=== PATIENT | female | born 1970 | race Caucasian/White ===

== ENCOUNTER 2017-05-03 19:48 | Emergency (ER) | payer MEDICAID ==
[2017-05-03] MEDS ORDERED: Ketorolac 30 MG/ML SDV IVPUSH ONE (20:26)
[2017-05-03] MEDS ORDERED: Tamsulosin 0.4 MG Cap.ER PO ONE (20:26)
[2017-05-03] MEDS ORDERED: Sodium Chloride 0.9% 1,000 ML IV ONE ×2 (20:26→22:32)
[2017-05-03] MEDS ORDERED: Morphine 2 MG/ML Syringe IVPUSH ONE (20:26)
[2017-05-03] MEDS ORDERED: Ondansetron 4 MG/2 ML SDV IVPUSH ONE (20:26)
--- NOTE | 2017-05-03 20:33 | EDM.PDOC ---
ED HPI GENERAL MEDICAL PROBLEM - General Chief Complaint: Flank Pain Stated Complaint: PT HAS BACK PAIN Time Seen by Provider: 05/03/17 20:20 Source of Information: Reports: Patient History Limitations: Reports: No Limitations - History of Present Illness INITIAL COMMENTS - FREE TEXT/NARRATIVE: HISTORY AND PHYSICAL: History of present illness: [Patient comes to the emergency room complaining of right flank pain. She had a kidney stone one year ago and states that today's symptoms feel exactly the same. She states that she's been having twinges to her right low back area for the past 1-1/2-2 weeks with the pain hit her hard and suddenly today at approximately 6:30 PM. She's had 3 episodes of vomiting at home. She rates her pain at 10 out of 10 and continues to feel nauseous in the ER. She has noticed no blood in her urine. No burning with urination and urinary urgency. She has had some recent frequency but nothing significant per her report. She denies fever and chills. No abdominal pain, constipation or diarrhea. She is otherwise feeling well.] Review of systems: As per history of present illness and below otherwise all systems reviewed and negative. Past medical history: As per history of present illness and as reviewed below otherwise noncontributory. Surgical history: As per history of present illness and as reviewed below otherwise noncontributory. Social history: No reported history of drug or alcohol abuse. Family history: As per history of present illness and as reviewed below otherwise noncontributory. Physical exam: HEENT: Atraumatic, normocephalic. Oral mucous membranes are pink and moist. Lungs: Clear to auscultation, breath sounds equal bilaterally. Heart: S1S2, regular rate and rhythm. Abdomen: Soft, nondistended, mildly tender over her suprapubic area. Otherwise nontender. Tender with palpation of her right flank. Pelvis: Stable nontender. Genitourinary: Deferred. Rectal: Deferred. Extremities: Atraumatic, no swelling or cyanosis to feet or lower legs. Neurovascular unremarkable. Neuro: Awake, alert, oriented. Motor and sensory unremarkable throughout. Exam nonfocal. Diagnostics: [CBC, CMP, UA, CT abdomen and pelvis without contrast] Therapeutics: [Toradol 30 mg IV, Zofran 4 mg IV, morphine 2 mg IV, 1 L normal saline, Flomax 0.4 mg by mouth] Impression: [R flank pain] Plan: [Discussed w/ patient that it appears that she has passed a kidney stone as there is calcific debris seen within the right kidney. Rx is written for ketorolac 10 mg #20 sig 1 by mouth every 6 hours 0 refills, Zofran ODT #10 sig one by mouth 3 times a day as needed for nausea 0 refills, hydrocodone 5/325 mg #20 sig one by mouth every 6 hours as needed for pain 0 refills, Flomax 0.4 mg # 10 sig one by mouth daily 0 refills through [facility] for hydrocodone, Toradol, and Zofran. She is to follow up with urology. She is given a second liter of normal saline and pain is 2 out of 10. Will give her 1 dose of by mouth Toradol and hydrocodone. Incidental finding on CT shows a density of 2.9 cm. Discussed w/ her that this requires follow up w/ her PCP. She verbalized understanding of our discussion and agrees to do so. ] Definitive disposition and diagnosis as appropriate pending reevaluation and review of above. Treatments RN OUTPATIENT SURGERY: Reports: NSAIDS Flank Pain Score (Numeric/FACES): 8 - Related Data Allergies Allergy/AdvReac Type Severity Reaction Status Date / Time prednisone Allergy Chest Pain Verified 05/03/17 20:32 Sulfa (Sulfonamide Allergy Hives Verified 05/03/17 20:32 Antibiotics) Home Meds: Home Meds Estradiol 1 mg PO DAILY 06/01/15 [History] Furosemide [Lasix] 20 mg PO DAILY 06/01/15 [History] Levothyroxine [Synthroid] 100 mcg PO ACBREAKFAST 06/01/15 [History] Losartan [Cozaar] 50 mg PO ONETIME 06/01/15 [History] metFORMIN [Glucophage] 1,000 mg PO DAILY 06/01/15 [History] Past Medical History Cardiovascular History: Reports: Other (See Below) Other Cardiovascular History: congenital heart defect 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: Other (See Below) Other OB/BYN History: full hysterectomy 2003, precancerous Neurological History: Reports: Concussion, Migraines Psychiatric History: Reports: Panic Attack, PTSD Hematologic History: Reports: Anemia - Past Surgical History HEENT Surgical History: Reports: Adenoidectomy, Tonsillectomy Social & Family History - Family History Family Medical History: Noncontributory - Tobacco Use Smoking Status *Q: Former Smoker Second Hand Smoke Exposure: No - Caffeine Use Caffeine Use: Reports: None - Recreational Drug Use Recreational Drug Use: No ED ROS GENERAL - Review of Systems Review Of Systems: ROS reveals no pertinent complaints other than HPI. ED EXAM,LOWER BACK PAIN/INJURY - Physical Exam Exam: See Below Course - Vital Signs Last Recorded V/S: Last Vital Signs Temp 98.2 F 05/03/17 20:05 Pulse 115 H 05/03/17 20:05 Resp 24 H 05/03/17 20:05 BP 188/89 H 05/03/17 20:05 Pulse Ox 93 L 05/03/17 20:05 - Orders/Labs/Meds Orders: Active Orders 24 hr Category Date Time Status Abdomen Pelvis wo Cont [CT] Stat Exams 05/03/17 20:25 Taken Sodium Chloride 0.9% [Normal Saline] 1,000 ml Med 05/03/17 22:32 Active IV STAT Medication Orders Sodium Chloride (Normal Saline) 1,000 mls @ 999 mls/hr IV STAT ONE Stop: 05/03/17 23:32 Labs: Laboratory Tests 05/03/17 05/03/17 05/03/17 Range/Units 20:32 20:32 21:18 WBC 10.06 (4.0-11.0) K/uL RBC 4.61 (4.30-5.90) M/uL Hgb 12.8 (12.0-16.0) g/dL Hct 38.5 (36.0-46.0) % MCV 83.5 (80.0-98.0) fL MCH 27.8 (27.0-32.0) pg MCHC 33.2 (31.0-37.0) g/dL RDW Std Deviation 41.9 (28.0-62.0) fl RDW Coeff of Cherry 14 (11.0-15.0) % Plt Count 298 (150-400) K/uL MPV 9.60 (7.40-12.00) fL Neut % (Auto) 63.1 (48.0-80.0) % Lymph % (Auto) 31.8 (16.0-40.0) % [facility] % (Auto) 4.4 (0.0-15.0) % Eos % (Auto) 0.7 (0.0-7.0) % Baso % (Auto) 0.0 (0.0-1.5) % Neut # (Auto) 6.4 H (1.4-5.7) K/uL Lymph # (Auto) 3.2 H (0.6-2.4) K/uL [facility] # (Auto) 0.4 (0.0-0.8) K/uL Eos # (Auto) 0.1 (0.0-0.7) K/uL Baso # (Auto) 0.0 (0.0-0.1) K/uL Nucleated RBC % 0.0 /100WBC Nucleated RBCs # 0 K/uL Sodium 139 (136-146) mmol/L Potassium 3.6 (3.5-5.1) mmol/L Chloride 101 (98-110) mmol/L Carbon Dioxide 22 (21-31) mmol/L BUN 14 (6.0-23.0) mg/dL Creatinine 0.8 (0.6-1.5) mg/dL Est Cr Clr Drug Dosing 86.75 mL/min Estimated GFR (MDRD) > 60.0 ml/min Glucose 216 H (60-110) mg/dL Calcium 9.7 (8.8-10.8) mg/dL Total Bilirubin 0.7 (0.1-1.5) mg/dL AST 39 (5-40) IU/L ALT 64 H (8-54) IU/L Alkaline Phosphatase 97 (40-150) Total Protein 7.3 (6.0-8.0) g/dL Albumin 4.2 (3.5-5.0) g/dL Globulin 3.1 (2.0-3.5) g/dL Albumin/Globulin Ratio 1.4 (1.3-2.8) Urine Color YELLOW Urine Appearance CLEAR Urine pH 6.0 (5.0-8.0) Ur Specific [place] >= 1.030 (1.001-1.035) Urine Protein NEGATIVE (NEGATIVE) mg/dL Urine Glucose (UA) NEGATIVE (NEGATIVE) mg/dL Urine Ketones TRACE H (NEGATIVE) mg/dL Urine Occult Blood NEGATIVE (NEGATIVE) Urine Nitrite NEGATIVE (NEGATIVE) Urine Bilirubin SMALL H (NEGATIVE) Urine Ictotest NEGATIVE Urine Urobilinogen 0.2 (<2.0) EU/dL Ur Leukocyte Esterase NEGATIVE (NEGATIVE) Urine RBC 0-1 (0-2/HPF) Urine WBC 0-2 (0-5/HPF) Ur Epithelial Cells FEW (NONE-FEW) Calcium Oxalate Crystal MODERATE (NEGATIVE) Urine Bacteria FEW (NEGATIVE) Meds: Medications Generic Name Dose Route Start Last Admin Trade Name Genesis PRN Reason Stop Dose Admin Sodium Chloride 1,000 mls @ 999 mls/hr 05/03/17 22:32 Normal Saline IV 05/03/17 23:32 STAT ONE Discontinued Medications Generic Name Dose Route Start Last Admin Trade Name Genesis PRN Reason Stop Dose Admin Hydrocodone Bitart/Acetaminophen 1 tab 05/03/17 22:40 [place] 325-10 Mg PO 05/03/17 22:41 ONETIME ONE Sodium Chloride 1,000 mls @ 999 mls/hr 05/03/17 20:26 05/03/17 20:44 Normal Saline IV 05/03/17 21:26 999 mls/hr STAT ONE Administration Ketorolac Tromethamine 30 mg 05/03/17 20:26 05/03/17 20:44 Toradol IVPUSH 05/03/17 20:27 30 mg ONETIME ONE Administration Ketorolac Tromethamine 10 mg 05/03/17 22:40 Toradol PO 05/03/17 22:41 ONETIME ONE Morphine Sulfate 2 mg 05/03/17 20:26 05/03/17 21:32 Morphine IVPUSH 05/03/17 20:27 2 mg ONETIME ONE Administration Ondansetron HCl 4 mg 05/03/17 20:26 05/03/17 20:44 Zofran IVPUSH 05/03/17 20:27 4 mg ONETIME ONE Administration Tamsulosin HCl 0.4 mg 05/03/17 20:26 05/03/17 20:44 Flomax PO 05/03/17 20:27 0.4 mg ONETIME ONE Administration Departure - Departure Time of Disposition: 22:30 Disposition: Home, Self-Care 01 Condition: Good Clinical Impression: Kidney stone - Discharge Information Referrals: PCP,None [Primary Care Provider] - Forms: ED Department Discharge Additional Instructions: The following information is given to patients seen in the emergency department who are being discharged to home. This information is to outline your options for follow-up care. We provide all patients seen in our emergency department with a follow-up referral. The need for follow-up, as well as the timing and circumstances, are variable depending upon the specifics of your emergency department visit. If you don't have a primary care physician on staff, we will provide you with a referral. We always advise you to contact your personal physician following an emergency department visit to inform them of the circumstance of the visit and for follow-up with them and/or the need for any referrals to a consulting specialist. The emergency department will also refer you to a specialist when appropriate. This referral assures that you have the opportunity for follow-up care with a specialist. All of these measure are taken in an effort to provide you with optimal care, which includes your follow-up. Under all circumstances we always encourage you to contact your private physician who remains a resource for coordinating your care. When calling for follow-up care, please make the office aware that this follow-up is from your recent emergency room visit. If for any reason you are refused follow-up, please contact the [facility] emergency department at and asked to speak to the emergency department charge nurse. [facility] - Urology [address] [place] [address] Follow-up with your urologist or the clinic listed above in 48-72 hours. Take pain medications to stay on top of your discomfort. Push fluids. Return to ER as needed as discussed. - My Orders Last 24 Hours: My Active Orders 05/03/17 20:25 Abdomen Pelvis wo Cont [CT] Stat 05/03/17 22:32 Sodium Chloride 0.9% [Normal Saline] 1,000 ml IV STAT - Assessment/Plan Last 24 Hours: My Active Orders 05/03/17 20:25 Abdomen Pelvis wo Cont [CT] Stat 05/03/17 22:32 Sodium Chloride 0.9% [Normal Saline] 1,000 ml IV STAT
[2017-05-03 21:00] LABS: CHLORIDE,CL 101 mmol/L (98-110); SODIUM,NA 139 mmol/L (136-146)
[2017-05-03] MEDS ORDERED: Acetaminophen/HYDROcodone 325-10 MG Tab PO ONE (22:40)
[2017-05-03] MEDS ORDERED: Ketorolac 10 MG Tab PO ONE (22:40)
[2017-05-04 00:27] VITALS: BP 123/76
--- NOTE | 2017-05-04 19:46 | CT ---
EXAM DATE: 05/03/17 PATIENT'S AGE: 47 Patient: NORMAN CHARLES Facility: [facility], [place], [place] : 1970 Study: CT Abdomen/Pelvis [id number]/14/2018 9:28:00 PM Ordering Physician: SHAUN Final Report: INDICATION: Right flank pain TECHNIQUE: CT Abdomen and pelvis without i.v. contrast. Coronal and sagittal reformats were obtained. CONTRAST: None COMPARISON: 05/08/2016 FINDINGS: Lower chest: Unremarkable. Liver: Moderate diffuse fatty infiltration of the liver is noted with mild focal fatty sparing near the gallbladder fossa. Spleen: Unremarkable. Pancreas: Unremarkable. Gallbladder: Previous cholecystectomy noted without significant intra- or extrahepatic biliary ductal dilatation seen. Kidney: There is a punctate less than 1 mm stone present in the lower pole of the right kidney. Mild calcific debris is seen in the right lower pole posterior calyx. Adrenal: Unremarkable. Bowel: There is a gasless density near the ileocecal valve measuring 2.9 cm without any apparent obstruction of the terminal ileum. This is most likely due to small bowel contents incompletely mixing with cecal stool. Moderate sigmoid diverticulosis is present with no evidence of diverticulitis. The appendix is not identified. Small fat containing umbilical hernia is noted. Vascular: Unremarkable. Lymph: Unremarkable. Peritoneum: Unremarkable. No pneumoperitoneum is seen. No significant ascites is noted. Pelvis: Unremarkable. Soft tissue: Unremarkable. Bone: Unremarkable for age. IMPRESSION: 1. There is a gasless density near the ileocecal valve measuring 2.9 cm without any apparent obstruction of the terminal ileum. This is most likely due to small bowel contents incompletely mixing with cecal stool. Further evaluation with barium enema or colonoscopy is recommended for confirmation and to exclude a colonic mass given the patient`s age unless already recently performed. 2. Punctate nonobstructing renal stones and calcific debris seen within the right kidney. Dictated by Brent Walker MD @ 05/03/2017 10:15:48 PM Dictated by: Brent Walker MD @ 05/03/2017 22:15:54 (Electronic Signature) Report Signed by Proxy. [facility] AND MEDICAL CENTERPrieto
== END 2017-05-03 23:55 | disposition home or self-care (01) ==
LOC: MW.ED 19:48
DX: N20.0 Calculus of kidney (principal); Z87.891 Personal history of nicotine dependence; Z79.84 Long term (current) use of oral hypoglycemic drugs; Z79.899 Other long term (current) drug therapy; Z88.2 Allergy status to sulfonamides; Z88.8 Allergy status to other drugs, medicaments and biological substances
CPT/HCPCS: 36415; 74176; 80053; 81001; 85025; 96361; 96374; 96375; 99284; A9270; J1885; J2270; J2405; J7040

== ENCOUNTER 2017-07-17 10:01 | Day surgery (SDC) | payer MEDICAID ==
[~2017-07-17 10:01] MED LIST: Lactated Ringers 1,000 ML IV SCH
[2017-07-17] MEDS ORDERED: Lidocaine 2% 5 ML SDV ONE (11:07)
[2017-07-17] MEDS ORDERED: Midazolam 1 MG/ML 2 ML SDV ONE (11:07)
[2017-07-17] MEDS ORDERED: Propofol 200 MG/20 ML SDV ONE ×2 (11:07→11:56)
[2017-07-17] MEDS ORDERED: fentaNYL 100 MCG/2 ML SDV ONE (11:08)
--- NOTE | 2017-07-17 11:36 | PCM.PREANE ---
Preanesthetic Assessment - Anesthesia/Transfusion/Family Hx Anesthesia History: Prior Anesthesia Without Reaction Other Type of Anesthesia Reaction Comment: states nausea after surgery Family History of Anesthesia Reaction: No Transfusion History: Prior Transfusion Without Reaction Intubation History: Unknown - Review of Systems General: No Symptoms Pulmonary: No Symptoms Cardiovascular: No Symptoms Gastrointestinal: No Symptoms Neurological: No Symptoms Other: Reports: None - Physical Assessment O2 Sat by Pulse Oximetry: 95 Respiratory Rate: 16 Vital Signs: Last Vital Signs Temp 36.2 C 07/17/17 11:10 Pulse 97 07/17/17 11:10 Resp 16 07/17/17 11:10 BP 132/82 07/17/17 11:10 Pulse Ox 95 07/17/17 11:10 Height: 1.73 m Weight: 124.738 kg ASA Class: 3 Mental Status: Alert & Oriented x3 Airway Class: Mallampati = 2 Dentition: Reports: Normal Dentition Thyro-Mental Finger Breadths: 3 Mouth Opening Finger Breadths: 2 ROM/Head Extension: Full Lungs: Clear to Auscultation, Normal Respiratory Effort Cardiovascular: Regular Rate, Regular Rhythm - Allergies Allergies/Adverse Reactions: Allergies Allergy/AdvReac Type Severity Reaction Status Date / Time prednisone Allergy Chest Pain Verified 07/13/17 12:00 Sulfa (Sulfonamide Allergy Hives Verified 07/13/17 12:00 Antibiotics) - Blood Blood Available: No - Anesthesia Plan Pre-Op Medication Ordered: None - Acknowledgements Anesthesia Type Planned: MAC Pt an Appropriate Candidate for the Planned Anesthesia: Yes Alternatives and Risks of Anesthesia Discussed w Pt/Guardian: Yes Pt/Guardian Understands and Agrees with Anesthesia Plan: Yes PreAnesthesia Questionnaire HEENT History: Reports: Other (See Below) Other HEENT History: hx previous eye infection which is now resolved Cardiovascular History: Reports: High Cholesterol, Hypertension, Other (See Below) Other Cardiovascular History: hx congenital heart defect (coarctation of aorta fixed at age 34) Gastrointestinal History: Reports: Other (See Below) (cystic mass at ileocecal valve on CT scan for kidney stone) Other Gastrointestinal History: occasional heartburn Genitourinary History: Reports: Renal Calculus 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 OB/BYN History: full hysterectomy 2003, precancerous Musculoskeletal History: Reports: Fracture Other Musculoskeletal History: hx fx foot Neurological History: Reports: Concussion, Migraines Psychiatric History: Reports: Anxiety, Depression Endocrine/Metabolic History: Reports: Diabetes, Type II, Hypothyroidism, Obesity /BMI 30+ (morbid obesity BMI 41.8) Hematologic History: Reports: Blood Transfusion(s) Other Hematologic History: hx of blood transfusion for Post bleed - Past Surgical History Head Surgeries/Procedures: Reports: None HEENT Surgical History: Reports: Tonsillectomy Cardiovascular Surgical History: Reports: Other (See Below) Other Cardiovascular Surgeries/Procedures: aortic coarctation repair GI Surgical History: Reports: Appendectomy, Cholecystectomy, Colonoscopy ( in [place]) Female Surgical History: Reports: Hysterectomy, Oophorectomy - SUBSTANCE USE Smoking Status *Q: Never Smoker Tobacco Use Within Last Twelve Months: No Second Hand Smoke Exposure: No Recreational Drug Use History: No - HOME MEDS Home Medications: Home Meds Estradiol 0.5 mg PO DAILY 06/01/15 [History] Furosemide [Lasix] 20 mg PO DAILY 06/01/15 [History] Levothyroxine [Synthroid] 100 mcg PO ACBREAKFAST 06/01/15 [History] Losartan [Cozaar] 50 mg PO DAILY 06/01/15 [History] metFORMIN [Glucophage] 1,000 mg PO BID 06/01/15 [History] Desvenlafaxine Succinate [Desvenlafaxine Succinate ER] 100 mg PO DAILY 05/26/17 [History] LORazepam 1 mg PO ASDIRECTED PRN 05/26/17 [History] Omeprazole [priLOSEC OTC] 1 tab PO ASDIRECTED PRN 05/26/17 [History] - CURRENT (IN HOUSE) MEDS Current Meds: Current Medications Lactated Ringer's (Ringers, Lactated) 1,000 mls @ 125 mls/hr IV ASDIRECTED NYA Last Admin: 07/17/17 11:16 Dose: 125 mls/hr Discontinued Medications Fentanyl (Sublimaze) Confirm Administered Dose 100 mcg .ROUTE .STK-MED ONE Stop: 07/17/17 11:09 Lactated Ringer's (Ringers, Lactated) 1,000 mls @ 125 mls/hr IV ASDIRECTED NYA Lactated Ringer's (Ringers, Lactated) 1,000 mls @ 125 mls/hr IV ASDIRECTED NYA Lidocaine (Xylocaine-Mpf 2%) Confirm Administered Dose 10 ml .ROUTE .STK-MED ONE Stop: 07/17/17 11:08 Midazolam HCl (Versed 1 Mg/Ml) Confirm Administered Dose 2 mg .ROUTE .STK-MED ONE Stop: 07/17/17 11:08 Propofol (Diprivan 20 Ml) Confirm Administered Dose 400 mg .ROUTE .STK-MED ONE Stop: 07/17/17 11:08
[2017-07-17] MEDS ORDERED: Ondansetron 4 MG/2 ML SDV ONE (11:41)
--- NOTE | 2017-07-17 12:28 | PCM.OPNOTE ---
- General Post-Op/Procedure Note Date of Surgery/Procedure: 07/17/17 Operative Procedure(s): Colonoscopy w/ cold ascending colon polypectomy Pre Op Diagnosis: Abnormal CT scan. Rectal bleeding. Post-Op Diagnosis: Ascending colon polyp. Pancolonic diverticulosis Anesthesia Technique: MAC (ASA III) Primary Surgeon: Trevor Alarcon Condition: Good Free Text/Narrative:: Dictation [id number] CPT CODE [id number]
[2017-07-17] MEDS ORDERED: Lactated Ringers 1,000 ML IV SCH ×2 (12:30→13:30)
--- NOTE | 2017-07-17 12:49 | PCM48HPAN ---
Post Anesthesia Note - EVALUATION WITHIN 48HRS OF ANESTHETIC Vital Signs in Normal Range: Yes Patient Participated in Evaluation: Yes Respiratory Function Stable: Yes Airway Patent: Yes Cardiovascular Function Stable: Yes Hydration Status Stable: Yes Pain Control Satisfactory: Yes Nausea and Vomiting Control Satisfactory: Yes Mental Status Recovered: Yes Resp Rate: 13 - COMMENTS/OBSERVATIONS Free Text/Narrative:: no anesthesia problems
[2017-07-17 13:00] VITALS: BP 109/64
--- NOTE | 2017-07-17 13:04 | OR ---
SURGEON: Trevor Alarcon M.D. DATE OF PROCEDURE: 07/17/2017 OPERATION PERFORMED: Colonoscopy with cold ascending colon polypectomy. ANESTHESIA: MAC. ASA CLASSIFICATION: III. PREOPERATIVE DIAGNOSES: 1. Abnormal CT scan with possible cecal mass. 2. Intermittent rectal bleeding. POSTOPERATIVE DIAGNOSES: 1. Small ascending colon polyp. 2. Pancolonic diverticulosis. DESCRIPTION OF PROCEDURE: The patient was taken to the endoscopy room and positioned on the endoscopy table in the left lateral decubitus position. Time-out was called for appropriate identification of the patient and procedure. Monitored anesthesia care was provided. The colonoscope was inserted into the rectum and advanced with minimal difficulty to the cecum where the colonoscope was retroflexed to visualize the ascending colon from below. The colonoscope was then straightened and slowly withdrawn. The cecum demonstrated a prominent ileocecal valve, but no intrinsic masses noted. One small polyp was encountered in the ascending colon and removed with the cold biopsy forceps. Diverticular changes were noted, scattered throughout the entire length of the colon with the most significant area of involvement being the sigmoid colon. No acute inflammatory changes or ulcerations were noted. There was no evidence of angiodysplasia. Once the colonoscope was withdrawn to the rectum, it was retroflexed to visualize the anal orifice from above. No tumors or polyps were seen, and there were no acute hemorrhoidal changes. The colonoscope was then straightened, the rectum aspirated, and the colonoscope removed. The patient tolerated the procedure well and was taken to recovery room in satisfactory condition. XOCHITL / WENDY /[id number]
--- NOTE | 2017-07-20 06:32 | OR ---
SURGEON: Trevor Alarcon M.D. DATE OF PROCEDURE: 07/17/2017 OPERATION PERFORMED: Colonoscopy with cold ascending colon polypectomy. ANESTHESIA: MAC. ASA CLASSIFICATION: III. PREOPERATIVE DIAGNOSIS: Abnormal CT scan. DICTATION ENDS HERE ANDEWAY / MODL /[id number]
== END 2017-07-17 12:59 | disposition home or self-care (01) ==
LOC: MW.SDS 10:01
PROVIDERS: ATTEND Surgery
DX: D12.2 Benign neoplasm of ascending colon (principal); K57.30 Diverticulosis of large intestine without perforation or abscess without bleeding; I10 Essential (primary) hypertension; E78.00 Pure hypercholesterolemia, unspecified; F32.9 Major depressive disorder, single episode, unspecified; F41.9 Anxiety disorder, unspecified; E11.9 Type 2 diabetes mellitus without complications; E03.9 Hypothyroidism, unspecified; E66.01 Morbid (severe) obesity due to excess calories; Z68.41 Body mass index [BMI] 40.0-44.9, adult; Z90.710 Acquired absence of both cervix and uterus; Z90.49 Acquired absence of other specified parts of digestive tract; Z98.890 Other specified postprocedural states; Z79.84 Long term (current) use of oral hypoglycemic drugs; Z79.899 Other long term (current) drug therapy
CPT/HCPCS: 45380; J2250; J2405; J3010; J7120; 00811; 88305; J2704